=== PATIENT | female | born 1950 | race Two or more races ===

== ENCOUNTER 2016-04-25 12:52 | Emergency (ER) | payer MEDICARE, OTHER ==
[~2016-04-25] VITALS: Ht 162.6 cm; Wt 63.5 kg
[2016-04-25] VITALS (9 sets, daily range): BP systolic 111–132; BP diastolic 64–95
[~2016-04-25 12:52] MED LIST: ASPIR 8181 MG ORAL; LEVOFLOXACIN500 MG ORAL; ROBITUSSIN COU118 M4 PO
[2016-04-25] MEDS ORDERED: Morphine Sulfate 4mg/ml Inj IVP ONE (13:00)
[2016-04-25] MEDS ORDERED: Propofol 10mg/ml 20ml IV ONE (13:45)
--- NOTE | 2016-04-25 14:30 | Emergency Room Report ---
History of Present Illness General Chief Complaint: Upper Extremity Injury Source: Patient (Jolene Ragland) Present Illness HPI 66-year-old female presents to emergency Department complaining of pain swelling and deformity in the right elbow status post fall while playing with her grandson earlier today. Patient rates her pain as 6/10 in severity which is exacerbated upon movement or palpation. Patient denies previous injury to the affected extremity. Patient reports history of arthritis in the knees bilaterally. Patient reports difficulty with movement about the right elbow. She denies hitting her head or loss of consciousness. Denies numbness tingling or loss of sensation or gross motor movements of the extremities, incontinence of bowel or bladder. Denies CP, Palpitations, LOC, AMS, dizziness, Changes in Vision, Sensation, paresthesias, or a sudden severe headache. (Jolene Ragland) Allergies: Coded Allergies: No Known Allergies (Unverified , 01/01/14) Patient History Past Medical History: see triage record Past Surgical History: none Pertinent Family History: none Now: No Immunizations: UTD Reviewed Nursing Documentation: PMH: Agreed, PSxH: Agreed (Jolene Ragland) Nursing Documentation-PMH Past Medical History: No History, Except For Hx Hypertension: No Hx Pacemaker: No Hx Asthma: No Hx COPD: No Hx Diabetes: No Hx Cancer: No Hx Gastrointestinal Problems: No Hx Dialysis: No Hx Neurological Problems: No - ARTHRITIS - LEFT KNEE Hx Cerebrovascular Accident: No Hx Seizures: No (Jolene Ragland) Review of Systems All Other Systems: negative except mentioned in HPI (Jolene Ragland) Physical Exam Vital Signs Date Time Temp Pulse Resp B/P Pulse Ox O2 Delivery O2 Flow Rate FiO2 04/25/16 12:37 98.8 74 16 158/79 99 Room Air Sp02 EP Interpretation: reviewed, normal General Appearance: no apparent distress, alert, GCS 15, non-toxic Head: normocephalic, atraumatic Eyes: bilateral eye PERRL, bilateral eye normal inspection ENT: hearing grossly normal, normal pharynx, no angioedema, normal voice Neck: full range of motion, supple/symm/no masses Respiratory: chest non-tender, lungs clear, normal breath sounds, speaking full sentences Cardiovascular #1: regular rate, rhythm, no edema Cardiovascular #2: 2+ radial (R), 2+ radial (L) Musculoskeletal: back normal, gait/station normal, normal range of motion, no calf tenderness, swelling, other - TTP, Swelling, and obvious deformity of the right elbow., tender - right elbow Neurologic: alert, oriented x3, responsive, motor strength/tone normal, sensory intact, speech normal Psychiatric: judgement/insight normal, memory normal, mood/affect normal, no suicidal/homicidal ideation Reflexes: 4+ bicep (R), 4+ bicep (L), 4+ tricep (R), 4+ tricep (L), 4+ knee (R) , 4+ knee (L) Skin: normal color, no rash, warm/dry, well hydrated Lymphatic: no adenopathy (Jolene Ragland P.ANory) Procedures Splinting Splinting : Consent: Verbal Location: right arm Pre-Made Type: SLing Pre-Proc Neuro Vasc Exam: normal Post-Proc Neuro Vasc Exam: normal Patient Tolerated: Well Complications: None (Jolene Ragland P.A.) Joint Reduction Joint Reduction : Consent: Verbal Joint Reduction Site: other - Right Elbow Procedural Sedation: Yes Reduction Attempts: One Pre-Procedure NV Exam: Yes Post-Procedure NV Exam: Yes Post Joint Reduction Film: no fracture seen Patient Tolerated: Well Complications: None (Jolene Ragland P.A.) Procedural Sedation Consent: Written Pre-Sedation Assessment: Eval. Immed. Prior to Sed, Pre-proc Edu. done, Plan for Sedation Discuss Airway Assessment (Malampati): I Heart: normal Lungs: normal Abdomen: normal Extremities: normal Procedures/Plans: Closed Reduction Plan for Moderate Sedation: Propofol ASA Score: I Start Time: 14:08 End Time: 14:12 Communication: No Apparent Limitation Mental Status: Awake Respiration: Unlabored Skin Condition: WNL Abdomen: WNL Nausea: NO Vomiting: NO (JAM CASTILLO M.D.) Medical Decision Making PA Attestation Dr. edouard is my supervising Physician whom patient management has been discussed with. (Jolene Ragland P.ANory) Medicare Attestation The history of Amber Dillon has been reviewed and management options for her have been examined and discussed by Jam Castillo. I have personally examined and interviewed the patient. (JAM CASTILLO M.D.) Diagnostic Impression: Primary Impression: Dislocation, elbow, posterior Qualified Codes: S53.124A - Posterior dislocation of right ulnohumeral joint, initial encounter ER Course Pt. presents to the ED c/o Right elbow pain, swelling and deformity s/p fall while playing with grandson today. Ddx considered but are not limited to Fracture, dislocation, contusion, Sprain/ Strain/Spasm. Vital signs: are WNL, pt. is afebrile H&PE are most consistent with possible d/L or fx, will r/o with imaging. ORDERS: - X-ray Right Elbow 3 views - Positive for posterior D/L, Negative for fx, or significant soft tissue injury, per preliminary read in ED by Dr. Castillo ED INTERVENTIONS: - 4mg IV Morphine - Joint reduction under moderate sedation, see procedure note, in addition to Dr. Castillo's note on moderate sedation. - Right arm Sling is applied by veterinary laboratory technician. Pt. remains neurovascularly intact. -5mg Russell PO This pt. was highly complex as the use of strong opiate pain medications, in addition to procedural sedation with bedside respiratory technicians present was required during the management and treatment of this patients condition in the ED . DISCHARGE: At this time pt. is stable for d/c to home. Will provide printed patient care instructions, and any necessary prescriptions. Care plan and follow up instructions have been discussed with the patient prior to discharge. (Jolene Ragland P.ANory) Last Vital Signs Date Time Temp Pulse Resp B/P Pulse Ox O2 Delivery O2 Flow Rate FiO2 04/25/16 13:40 98.0 04/25/16 13:04 58 16 132/74 97 Room Air Status: improved - proper joint alignment was achieved , in addition to pain management (Jolene Ragland P.ANory) Disposition: HOME, SELF-CARE Condition: Stable Scripts Ibuprofen* (MOTRIN*) 600 Mg Tablet 600 MG ORAL THREE TIMES A DAY, #30 TAB 0 Refills Prov: Jolene Ragland P.ANory 04/25/16 Hydrocodone Bit/Acetaminophen 5-325* (NORCO 5-325*) 1 Each Tablet 1 TAB ORAL Q6H Y for For Pain, #10 TAB 0 Refills Prov: Jolene RaglandANory 04/25/16 Patient Instructions: Elbow Dislocation Additional Instructions: Take medications as directed. Follow up with PCP in 3-5 days Return sooner to ED if new symptoms occur, or current symptoms become worse. Do not drink alcohol, drive, or operate heavy machinery while taking Russell as this may cause drowsiness. - Please note that this Emergency Department Report was dictated using [employer] sander technology software, occasionally this can lead to erroneous entry secondary to interpretation by the dictation equipment. Jolene Ragland Apr 25, 2016 14:30 JAM CASTILLO M.D. Apr 25, 2016 15:00
[2016-04-25] MEDS ORDERED: NORCO 5-325 TA1 EACH ORAL (14:32)
[2016-04-25] MEDS ORDERED: IBUPROFEN600 MG ORAL ×2 (14:32→20:11)
[2016-04-25] MEDS ORDERED: Norco 5mg/325mg tab ORAL ONE (15:15)
--- NOTE | 2016-04-26 09:59 | Diagnostic Imaging Report ---
Indication: Right elbow pain status post reduction Technique: XRAY ELBOW 2 VIEWS RIGHT Comparison: None Findings: Limited lateral view demonstrates gross interval reduction of previously noted elbow dislocation. Impression: Limited lateral view demonstrates gross interval reduction of right elbow dislocation. Joint effusion.
--- NOTE | 2016-04-26 10:04 | Diagnostic Imaging Report ---
Indication: Left elbow pain Technique: XRAY ELBOW MIN 3 VIEWS LEFT Comparison: None Findings: There is dislocation of the left elbow. Small periarticular osseous fragments are seen measuring up to 6 mm. There is a joint effusion. Impression: Left elbow dislocation. Small periarticular osseous fragments. Definitive donor site uncertain. Clinical correlation recommended.
== END 2016-04-25 15:27 | disposition home or self-care (01) ==
LOC: EDBD 12:52 → EMR 13:15
DX: S53.124A Posterior dislocation of right ulnohumeral joint, initial encounter (principal); M19.90 Unspecified osteoarthritis, unspecified site; W18.30XA Fall on same level, unspecified, initial encounter; Y92.9 Unspecified place or not applicable; Y99.8 Other external cause status
CPT/HCPCS: 24600; 29240; 73070; 73080; 96360; 96374; 99284; J2270

== ENCOUNTER 2016-06-29 14:42 | Emergency (ER) | payer OTHER, MEDICAID ==
[~2016-06-29] VITALS: Ht 162.6 cm; Wt 77.1 kg
[~2016-06-29 14:42] MED LIST changes: +IBUPROFEN600 MG ORAL; +NORCO 5-325 TA1 EACH ORAL
[2016-06-29 14:52] VITALS: BP 121/63
--- NOTE | 2016-06-29 16:22 | Diagnostic Imaging Report ---
Indications: Right elbow pain since dislocation 2 months ago per patient Technique: 3 views right elbow. Findings: Comparison: None 2 adjacent well-corticated osseous densities project lateral to the elbow joint and lateral humeral epicondyles on AP view. Surrounding soft tissues are mildly swollen. 5 mm linear calcific/ossific density projects anterior to the distal humerus on lateral view. There is suggestion of mild displacement of both anterior and posterior fat pads. No dislocation, joint space widening, or other acute changes are identified. IMPRESSION: Suggestion of multiple avulsion fractures of the distal humerus with associated soft tissue swelling, possible effusion. These may have occurred during dislocation reported by patient. CT scan of the right elbow may be of benefit in further evaluation, as clinically indicated.
[2016-06-29 16:23] VITALS: BP 121/63
--- NOTE | 2016-06-30 12:33 | Emergency Room Report ---
History of Present Illness General Chief Complaint: Upper Extremity Injury Source: Patient Present Illness HPI The patient is a 66-year-old female presenting for right elbow pain. The patient was seen in this emergency department for right elbow dislocation 2 months prior. The elbow was reduced here. The patient was then seen by her primary doctor and was told to return here for repeat x-rays. The patient states pain has decreased and is now a 4-10 dull ache. It does not radiate. Pain worse with movement. She states she is unable to fully extend the arm. She denies any numbness or tingling. She denies any other symtpoms such as N, V , F, CP, SOB, rash Allergies: Coded Allergies: No Known Allergies (Unverified , 01/01/14) Patient History Past Medical History: see triage record Pertinent Family History: none Last Menstrual Period: na Reviewed Nursing Documentation: PMH: Agreed, PSxH: Agreed Nursing Documentation-PMH Past Medical History: No History, Except For Hx Hypertension: No Hx Pacemaker: No Hx Asthma: No Hx COPD: No Hx Diabetes: No Hx Cancer: No Hx Gastrointestinal Problems: No Hx Dialysis: No Hx Neurological Problems: No - ARTHRITIS - LEFT KNEE Hx Cerebrovascular Accident: No Hx Seizures: No Review of Systems All Other Systems: negative except mentioned in HPI Physical Exam Vital Signs Date Time Temp Pulse Resp B/P Pulse Ox O2 Delivery O2 Flow Rate FiO2 06/29/16 14:52 98.8 67 18 121/63 99 Room Air Sp02 EP Interpretation: reviewed, normal General Appearance: no apparent distress, alert, GCS 15, non-toxic Head: normocephalic, atraumatic Eyes: bilateral eye PERRL, bilateral eye normal inspection Musculoskeletal: non-tender, decreased range of motion - unable to fully extend at R elbow Neurologic: alert, oriented x3, responsive, motor strength/tone normal, sensory intact, speech normal Psychiatric: judgement/insight normal, memory normal, mood/affect normal, no suicidal/homicidal ideation Skin: normal color, no rash, warm/dry, well hydrated Lymphatic: no adenopathy Medical Decision Making PA Attestation Dr. Castillo is my supervising physician. Patient management was discussed with my supervising physician Diagnostic Impression: Primary Impression: Elbow dislocation Qualified Codes: S53.104D - Unspecified dislocation of right ulnohumeral joint , subsequent encounter ER Course The patient is a 66-year-old female presenting for right elbow pain. Ddx considered include but not limited to sprain/strain, fracture, contusion. adhesion PE: vitals WNL. NAD Right arm: Full active range of motion with flexion. Unable to fully extend at the elbow. No tenderness to palpation. No edema. No skin discoloration. X-ray of the right elbow shows no new injury. The patient is provided a copy which she will return to her PMD. I informed the patient she may need physical therapy. ER precautions are given Other X-Ray Diagnostic Results Other X-Ray Diagnostic Results : X-Ray Ordered: R elbow Date: June 30, 2016 EP Interpretation: Yes Findings: no dislocation, no soft tissue swelling, other - old fractures and calcifications noted Number of Views: 3 PA Scribe Text I am acting as scribe for my supervising physician. My supervising physician's interpretation of the R elbow xrays are there is no dislocation. No new fractures noted. Last Vital Signs Date Time Temp Pulse Resp B/P Pulse Ox O2 Delivery O2 Flow Rate FiO2 06/29/16 16:23 98.8 18 121/63 99 Room Air 06/29/16 14:52 66 Status: improved Disposition: HOME, SELF-CARE Condition: Improved Referrals: NON PHYSICIAN (PCP) Patient Instructions: Elbow Dislocation Additional Instructions: I discussed my findings with the patient. All questions and concerns have been answered. Treatment and medication compliance have been addressed. I advised the patient that they need to follow up with PMD in 3-5 days. Return to ED if pain remains or worsens, numbness or tingling occurs, new rash is noticed, fever is noticed, or if needed for any reason. Patient verbalized understanding of discharge instructions. JERMAINE ROJAS June 30, 2016 12:33
== END 2016-06-29 16:25 | disposition home or self-care (01) ==
LOC: EMR 16:24
DX: S53.104D Unspecified dislocation of right ulnohumeral joint, subsequent encounter (principal); X58.XXXD Exposure to other specified factors, subsequent encounter; M17.12 Unilateral primary osteoarthritis, left knee
CPT/HCPCS: 99283